=== PATIENT | female | born 1995 | race American Indian/Alaskan Native ===

== ENCOUNTER 2020-06-05 00:15 | Emergency (ER) | payer SELFPAY ==
[2020-06-05 01:31] LABS: Blood Urea Nitrogen 18 mg/dL (7-17); Calcium 9.2 mg/dL (8.4-10.2); Hemolysis Index 4
[2020-06-05 01:33] LABS: BUN/Creatinine Ratio 26
[2020-06-05 01:37] LABS: Basophils % (Auto) 0.5 % (0.0-1.8); Eosinophils % (Auto) 0.4 % (0.0-4.3); Lymphocytes # (Auto) 1.7 K/mm3 (1.2-5.4); Lymphocytes % (Auto) 32.6 % (13.4-35.0); Mean Corpuscular HGB Conc 33 % (30-34); Mean Corpuscular Volume 88 fl (79-97); Monocytes # (Auto) 0.3 K/mm3 (0.0-0.8); Platelet Count 291 K/mm3 (140-440); Red Blood Count 4.12 M/mm3 (3.65-5.03); Red Cell Distribution Width 13.8 % (13.2-15.2)
--- NOTE | 2020-06-05 04:31 | XRay Report ---
CHEST 2 VIEWS INDICATION / CLINICAL INFORMATION: racing heart, SOB. COMPARISON: None available. FINDINGS: SUPPORT DEVICES: None. HEART / MEDIASTINUM: No significant abnormality. LUNGS / PLEURA: No significant pulmonary or pleural abnormality. No pneumothorax. ADDITIONAL FINDINGS: Bilateral nipple piercings IMPRESSION: 1. No acute findings. Signer Name: Ra Duckworth MD Signed: 06/05/2020 4:27 AM Workstation Name: [id number]
--- NOTE | 2020-06-05 04:35 | Emergency Department Report ---
ED General Adult HPI - General Chief complaint: Abdominal Pain Stated complaint: ABD PAIN/HOT FLASHES Time Seen by Provider: 06/05/20 02:33 Source: patient Mode of arrival: Ambulatory Limitations: No Limitations - History of Present Illness Initial comments: 25-year-old -Algerian female patient presents with complaints of sudden onset of racing heart and shortness of breath today. She states her symptoms resolved prior to her arrival to the ED, and denies any chest pain, cough, leg pain/swelling, hemoptysis, history of DVT/PE, recent long travel, or hormone use. She does admit to mild anxiety, but denies any other past medical history. Patient also states intermittent lower abdominal cramping since having ectopic surgery and tubal removal in 01/2020. No current abdominal pain per patient. She also denies any vaginal discharge, dyspareunia, vaginal bleeding, dysuria/hematuria/urinary frequency. - Related Data Allergies Allergy/AdvReac Type Severity Reaction Status Date / Time No Known Allergies Allergy Verified 06/05/20 00:42 ED Review of Systems ROS: Stated complaint: ABD PAIN/HOT FLASHES Other details as noted in HPI Constitutional: denies: chills, fever, malaise Respiratory: shortness of breath. denies: cough Cardiovascular: denies: chest pain, edema, syncope Gastrointestinal: abdominal pain. denies: nausea, vomiting, diarrhea, constipation, hematemesis, melena, hematochezia Genitourinary: denies: urgency, dysuria, frequency, hematuria, discharge, abnormal menses, dyspareunia Musculoskeletal: denies: back pain Hematological/Lymphatic: denies: easy bleeding ED Past Medical Hx - Past Medical History Previous Medical History?: No - Surgical History Past Surgical History?: Yes Additional Surgical History: ectopic with right tube removed. - Social History Smoking Status: Never Smoker Substance Use Type: None ED Physical Exam - General Limitations: No Limitations General appearance: alert, in no apparent distress - Head Head exam: Present: atraumatic, normocephalic - Eye Eye exam: Present: normal appearance. Absent: scleral icterus - Respiratory Respiratory exam: Present: normal lung sounds bilaterally. Absent: respiratory distress, chest wall tenderness - Cardiovascular Cardiovascular Exam: Present: regular rate, normal rhythm. Absent: systolic murmur, diastolic murmur, rubs, gallop - GI/Abdominal GI/Abdominal exam: Present: soft, normal bowel sounds. Absent: distended, tenderness, guarding, rebound, rigid - Extremities Exam Extremities exam: Present: full ROM - Back Exam Back exam: Present: full ROM. Absent: CVA tenderness (R), CVA tenderness (L) - Neurological Exam Neurological exam: Present: alert, oriented X3, normal gait - Psychiatric Psychiatric exam: Present: normal affect, normal mood - Skin Skin exam: Present: warm, dry, intact, normal color. Absent: rash ED Medical Decision Making - Lab Data Result diagrams: 06/05/20 01:02 06/05/20 01:02 - EKG Data EKG shows normal: sinus rhythm Rate: normal - Radiology Data Radiology results: report reviewed CHEST 2 VIEWS INDICATION / CLINICAL INFORMATION: racing heart, SOB. COMPARISON: None available. FINDINGS: SUPPORT DEVICES: None. HEART / MEDIASTINUM: No significant abnormality. LUNGS / PLEURA: No significant pulmonary or pleural abnormality. No pneumothorax. ADDITIONAL FINDINGS: Bilateral nipple piercings IMPRESSION: 1. No acute findings. - Medical Decision Making 25-year-old -Algerian female patient presents with complaints of sudden onset of racing heart and shortness of breath today. She states her symptoms resolved prior to her arrival to the ED, and denies any chest pain, cough, leg pain/swelling, hemoptysis, history of DVT/PE, recent long travel, or hormone use. She does admit to mild anxiety, but denies any other past medical history. Patient also states intermittent lower abdominal cramping since having ectopic surgery and tubal removal in 01/2020. No current abdominal pain per patient. She also denies any vaginal discharge, dyspareunia, vaginal bleeding, dysuria/hematuria/urinary frequency. Lung, heart, and abdominal exam are normal. EKG is normal. Chest x-ray is normal. CBC and CMP are normal. Suspect possible anxiety attack. She continues to deny any symptoms. Recommend follow-up with primary care doctor in 3 to 5 days. Discussed signs and symptoms that should prompt immediate return to the emergency department in detail with patient who verbalizes understanding. She is well-appearing, her are vitals normal, she is stable for discharge home. Critical care attestation.: If time is entered above; I have spent that time in minutes in the direct care of this critically ill patient, excluding procedure time. ED Disposition Clinical Impression: Racing heart beat, Anxiety attack Dyspnea Qualifiers: Dyspnea type: shortness of breath Qualified Code(s): R06.02 - Shortness of breath; R06.00 - Dyspnea, unspecified; R06.01 - Orthopnea Disposition: - TO HOME OR SELFCARE Is pt being admited?: No Condition: Stable Instructions: Abdominal Pain (ED), Shortness of Breath, Adult, [id number], Panic Attack, [id number] Referrals: [facility] [Provider Group] - 3-5 Days
[2020-06-05 04:42] LABS: Bilirubin,Urine NEG (Negative); Blood,Urine NEG (Negative); Color,Urine Yellow (Yellow); Protein,Urine <15 mg/dL mg/dL (Negative); Urobilinogen,Urine < 2.0 mg/dL (<2.0)
[2020-06-05 05:27] VITALS: BP 115/69
== END 2020-06-05 04:57 | disposition home or self-care (01) ==
LOC: ED 00:15
DX: F41.0 Panic disorder [episodic paroxysmal anxiety] (principal); R06.00 Dyspnea, unspecified; R00.0 Tachycardia, unspecified; Z98.890 Other specified postprocedural states
CPT/HCPCS: 36415; 71046; 80048; 81001; 84703; 85025; 93005

== ENCOUNTER 2020-12-24 11:30 | Emergency (ER) | payer SELFPAY ==
[2020-12-24 12:03] VITALS: BP 137/81
--- NOTE | 2020-12-24 13:00 | Emergency Department Report ---
ED General Adult HPI - General Chief complaint: Chest Pain Stated complaint: CHEST PAIN Time Seen by Provider: 12/24/20 12:40 Source: patient Mode of arrival: Ambulatory Limitations: No Limitations - History of Present Illness Initial comments: 25-year-old female with no significant past medical history presents to the ER today with left-sided chest discomfort. Patient states that her discomfort started about 1 week ago. She states that it has been in her left upper chest and underneath her left breast. She states that has been intermittent in na ture. She states it was mild at first but got a slight more intense lastnight. She is unable to describe any modifying factors. She reports pain is not pleuritic in nature. She denies any injury but she states that she does do a lot of lifting at work. She also states she does not eat on time and thought the pain was related to gas. She denies any associated wheezing, cough, shortness of breath, fever, chills, calf pain or lower extremity swelling. She states that she smokes marijuana off and on but denies any other illicit drugs. She does not smoke tobacco. She denies any risk factors for PE or DVT. MD Complaint: Chest pain -: Sudden, week(s) (1) - Related Data Allergies Allergy/AdvReac Type Severity Reaction Status Date / Time No Known Allergies Allergy Verified 06/05/20 00:42 ED Review of Systems ROS: Stated complaint: CHEST PAIN Other details as noted in HPI Comment: All other systems reviewed and negative Constitutional: denies: chills, fever Eyes: denies: eye discharge, vision change ENT: denies: ear pain, throat pain, dental pain, hearing loss, epistaxis Respiratory: denies: cough, shortness of breath, wheezing Cardiovascular: chest pain. denies: palpitations, dyspnea on exertion, orthopnea, edema, syncope, paroxysmal nocturnal dyspnea Gastrointestinal: denies: abdominal pain, nausea, vomiting, diarrhea, constipation, hematemesis Genitourinary: denies: urgency, dysuria, frequency, hematuria, discharge, abnormal menses, dyspareunia Musculoskeletal: denies: back pain, joint swelling, arthralgia Skin: denies: rash, lesions Neurological: denies: headache, weakness, numbness, paresthesias, confusion, abnormal gait, vertigo Psychiatric: denies: anxiety, depression, auditory hallucinations, visual hallucinations, homicidal thoughts, suicidal thoughts Hematological/Lymphatic: denies: easy bleeding, easy bruising, swollen glands ED Past Medical Hx - Past Medical History Previous Medical History?: No - Surgical History Past Surgical History?: Yes Additional Surgical History: ectopic with right tube removed. - Social History Smoking Status: Never Smoker Substance Use Type: None ED Physical Exam - General Limitations: No Limitations General appearance: alert, in no apparent distress - Head Head exam: Present: atraumatic, normocephalic, normal inspection - Eye Eye exam: Present: normal appearance, PERRL, EOMI Pupils: Present: normal accommodation - Neck Neck exam: Present: normal inspection, full ROM - Respiratory Respiratory exam: Present: normal lung sounds bilaterally. Absent: respiratory distress, wheezes, rales, rhonchi, stridor, chest wall tenderness - Cardiovascular Cardiovascular Exam: Present: regular rate, normal rhythm, normal heart sounds - GI/Abdominal GI/Abdominal exam: Present: soft. Absent: distended, tenderness, guarding, rebound - Extremities Exam Extremities exam: Present: normal inspection, full ROM. Absent: pedal edema, calf tenderness - Neurological Exam Neurological exam: Present: alert, oriented X3, CN II-XII intact, normal gait - Psychiatric Psychiatric exam: Present: normal affect, normal mood - Skin Skin exam: Present: intact ED Course Vital Signs 12/24/20 12:02 Temperature 98.4 F Pulse Rate 77 Respiratory 18 Rate Blood Pressure 137/81 [Right] O2 Sat by Pulse 100 Oximetry ED Medical Decision Making - EKG Data EKG shows normal: sinus rhythm Rate: normal (66) - EKG Data Interpretation: normal EKG - Radiology Data Radiology results: report reviewed Patient: MARILY CLEMENTS MR#: [id number] : 1995 Acct:[id number] Age/Sex: 25 / F ADM Date: 12/24/20 Loc: ED Attending Dr: Ordering Physician: RAMÓN PERKINS Date of Service: 12/24/20 Procedure(s): XR chest routine 2V Accession Number(s): [id number] cc: RAMÓN PERKINS Fluoro Time In Minutes: CHEST 2 VIEWS INDICATION / CLINICAL INFORMATION: Chest pain. COMPARISON: 06/05/2020 FINDINGS: SUPPORT DEVICES: None. HEART / MEDIASTINUM: No significant abnormality. LUNGS / PLEURA: No significant pulmonary or pleural abnormality. No pneumothorax. ADDITIONAL FINDINGS: No significant additional findings. IMPRESSION: 1. No acute findings. Signer Name: Yung Kenyon MD Signed: 12/24/2020 1:32 PM Workstation Name: [id number] Transcribed By: TATIANNA Dictated By: YUNG KENYON MD Electronically Authenticated By: YUNG KENYON MD Signed Date/Time: 12/24/20 133 DD/ 30 TD/TT: - Medical Decision Making 1358: EKG is normal. Chest x-ray shows nothing acute. Patient is well-appearing, nontoxic and not in any acute pain or respiratory distress. She is neurologically intact. Her vital signs are stable. She has a PERC score of 0. Patient does not have any cardiac risk factors. Her history, exam, diagnostic testing and current condition do not suggest that this patient is having acute myocardial infarction, significant arrhythmia, unstable angina, esophageal perforation, pulmonary embolism, aortic dissection, pneumothorax, severe pneumonia, sepsis or other significant pathology that would warrant further testing, continued ED treatment, admission or cardiology or other specialist consultation at this time. Discussed x-ray and EKG results with patient. Discussed possible diagnosis with patient. Recommend follow-up with her primary care doctor but she understands if her symptoms worsens return to the ER. Patient was stable at time of discharge. Critical care attestation.: If time is entered above; I have spent that time in minutes in the direct care of this critically ill patient, excluding procedure time. ED Disposition Clinical Impression: Nonspecific chest pain Disposition: HOME / SELF CARE / HOMELESS Is pt being admited?: No Does the pt Need Aspirin: No Condition: Stable Instructions: Nonspecific Chest Pain, Adult Additional Instructions: Recommend taking Tylenol and/or ibuprofen as needed for the pain. I recommend that you do try to eat in timely manner. I do recommend that you follow-up closely with primary care doctor listed on your discharge instructions. Return to the ER if your symptoms worsens or changes in any way. Referrals: [facility] [Provider Group] - 3-5 Days (Primary care physician) [facility] [Provider Group] - 3-5 Days (OBGYN) ROSA SMITH MD [Staff Physician] - 3-5 Days (Primary Care physician) Forms: Work/School Release Form(ED) Time of Disposition: 13:52
--- NOTE | 2020-12-24 13:37 | XRay Report ---
CHEST 2 VIEWS INDICATION / CLINICAL INFORMATION: Chest pain. COMPARISON: 06/05/2020 FINDINGS: SUPPORT DEVICES: None. HEART / MEDIASTINUM: No significant abnormality. LUNGS / PLEURA: No significant pulmonary or pleural abnormality. No pneumothorax. ADDITIONAL FINDINGS: No significant additional findings. IMPRESSION: 1. No acute findings. Signer Name: Yung Kenyon MD Signed: 12/24/2020 1:32 PM Workstation Name: [id number]
--- NOTE | 2020-12-24 13:59 | Electrocardiograph Report ---
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
== END 2020-12-24 14:03 | disposition home or self-care (01) ==
LOC: ED 11:30
DX: R07.89 Other chest pain (principal); Z79.899 Other long term (current) drug therapy; Z98.890 Other specified postprocedural states
CPT/HCPCS: 71046; 93005